=== PATIENT | male | born 1965 | race Asian ===

== ENCOUNTER → 2024-07-15 | Day surgery (SDC) | payer BC ==
[~2024-07-15] MED LIST: B12 ACTIVE1000 MCG PO; FENTANYL CITRATE/PF 100MCG/2 ML INJ ONE; FEROSUL325 MG PO; FISH OIL 1,0001 EAC7 PO; FOLIC ACID0.4 MG PO; LIDOCAINE HCL 2% LOCAL INJ 5 ML SDV VIAL INJ ONE; LOSARTAN POTASS25 MG PO; PROPOFOL IV EMULSION 10 MG/ML 50 ML VIAL IV ONE; VITAMIN D3 MA125 MCG PO
[2024-07-15] MEDS: LACTATED RINGER'S 1,000 ML ONE (08:22)
[2024-07-15 11:35] VITALS: TEMP 97.7
[2024-07-15 12:05] VITALS: BP 118/67; PULSE 67; RESP 19; O2SAT 100
[2024-07-18 08:15] LABS: ENDOMYSIAL ANTIBODIES, IGA Negative (Negative)
[2024-07-18 09:04] LABS: IMMUNOGLOBULIN A 204 mg/dL (90-386); TISSUE TRANSGLUTAMINASE IGA AB <2 U/mL (0-3)
== END | disposition home or self-care (01) ==
LOC: OR 07:01
PROVIDERS: ATTEND Internal Medicine Gastroenterology
DX: R19.7 Diarrhea, unspecified (principal); Z86.010 Personal history of colon polyps; K29.50 Unspecified chronic gastritis without bleeding; K20.90 Esophagitis, unspecified without bleeding; K57.30 Diverticulosis of large intestine without perforation or abscess without bleeding; K64.8 Other hemorrhoids; D64.9 Anemia, unspecified; R73.03 Prediabetes; I10 Essential (primary) hypertension; E78.5 Hyperlipidemia, unspecified; N20.0 Calculus of kidney; Z01.810 Encounter for preprocedural cardiovascular examination; Z79.899 Other long term (current) drug therapy
CPT/HCPCS: 43239; 45378; 82784; 83516; 86256; 93005; J2001; J2470; J2704; J3010; J7121

== ENCOUNTER → 2025-04-10 | Outpatient (REF) | payer BC ==
[~2025-04-10] MED LIST changes: -FENTANYL CITRATE/PF 100MCG/2 ML INJ ONE; -LIDOCAINE HCL 2% LOCAL INJ 5 ML SDV VIAL INJ ONE; -PROPOFOL IV EMULSION 10 MG/ML 50 ML VIAL IV ONE
== END ==
LOC: DX 09:15
PROVIDERS: ATTEND Internal Medicine
DX: M81.0 Age-related osteoporosis without current pathological fracture (principal); M41.9 Scoliosis, unspecified
CPT/HCPCS: 72050; 72070; 72110; 77080